=== PATIENT | male | born 2000 ===

== ENCOUNTER 2022-01-11 18:24 | Emergency (ER) | payer SELFPAY ==
[2022-01-11 18:25] VITALS: BP 164/103; PULSE 68; RESP 14; TEMP 36.7; O2SAT 100; BMI 38.4
--- NOTE | 2022-01-11 19:24 | ED.RN ---
PT [id number]
== END 2022-01-11 19:25 | disposition left against medical advice (07) ==
LOC: ED 19:29
DX: Z48.02 Encounter for removal of sutures (principal)